=== PATIENT | female | born 1970 | race Caucasian/White ===

== ENCOUNTER 2019-10-06 10:16 | Day surgery (SDC) | payer OTHER, BC ==
[2019-10-03 09:08] VITALS: BMI 36.8
[2019-10-06] MEDS ORDERED: LIDOCAINE HCL/PF 2% SDV 5ML VIAL ONE (10:22)
[2019-10-06] MEDS ORDERED: KETOROLAC TROMETHAMINE 30 MG/1 ML VIAL ONE (10:22)
[2019-10-06] MEDS ORDERED: DEXAMETHASONE SOD PHOSPHATE 4 MG/1 ML VIAL ONE (10:22)
[2019-10-06] MEDS ORDERED: PROPOFOL 20 ML ONE (10:22)
[2019-10-06] MEDS ORDERED: MIDAZOLAM HCL 2 MG/2 ML SINGLE DOSE VIAL ONE ×2 (10:22)
[2019-10-06] MEDS ORDERED: ONDANSETRON 4 MG/2 ML VIAL ONE (10:22)
[2019-10-06] MEDS ORDERED: ONDANSETRON 4 MG/2 ML VIAL IVPUSH PRN (10:41)
[2019-10-06] MEDS ORDERED: oxyCODONE HCL 5 MG TABLET PO PRN ×2 (10:41)
[2019-10-06] MEDS ORDERED: LACTATED RINGERS SOLUTION 1,000 ML IV SCH (10:45)
[2019-10-06] MEDS ORDERED: BUPIVACAINE HCL/PF 0.5% (5MG/ML) 10 ML VIAL ONE (11:00)
[2019-10-06] MEDS ORDERED: MORPHINE 5 MG/10 ML AMP - FOR COMPOUNDING USE ONLY ONE (11:09)
[2019-10-06] MEDS ORDERED: MORPHINE SULFATE 10 MG/1 ML *VIAL ONE (11:13)
[2019-10-06] MEDS ORDERED: ceFAZolin SODIUM 1 GM VIAL ONE (11:34)
[2019-10-06] MEDS ORDERED: BUPIVACAINE HCL/PF 0.5% (5 MG/ML) 30 ML VIAL IJ ONE (11:47)
[2019-10-06] MEDS ORDERED: morphine CARPU-JECT 10 MG/1 ML DISP.SYRIN NR ONE (12:04)
[2019-10-06 15:16] VITALS: TEMP 98.2
[2019-10-06 15:19] VITALS: PULSE 80
[2019-10-06 15:22] VITALS: BP 112/74
--- NOTE | 2019-10-06 20:33 | OP ---
DATE OF OPERATION: 10/06/2019 PREOPERATIVE DIAGNOSIS: 1. Stiffness, left long finger. 2. Torn medial meniscus to the right knee. 3. Stiffness to the right knee. POSTOPERATIVE DIAGNOSIS: 1. Stiffness, left long finger. 2. Torn medial meniscus to the right knee. 3. Stiffness to the right knee. 4. Anterior cruciate ligament tear to the right knee. 5. 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 6. Fissuring of the right knee patellar inferior articular surface. 7. Extensive joint debris for the right knee. 8. 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 PROCEDURE PERFORMED: 1. Gentle slow manipulation left hand long finger. 2. Medial meniscectomy to the right knee. 3. Gentle manipulation under anesthesia to the right knee with lysis and resection of adhesions. 4. Anterior cruciate ligament tightening using micro wand technique to the right knee, partial thickness tear of the anterior cruciate ligament. 5. Microdrilling technique for stem cell recruitment for osteochondritis dissecans lesion of 1 cm in diameter to the right knee. 6. Chondroplasty and chondral shaving to the right knee inferior patellar articular surface. 7. Extensive joint debridement to the right knee. 8. Extensive hypertrophic synovectomy to the right knee. 9. Plastic surgical closure to the right knee. SURGEON: Barbara Rhodes MD. INTERNET SALES ASSOCIATE: SHAYNE Arreguin. TYPE OF ANESTHESIA: General anesthesia. ANESTHESIOLOGIST: Alesia Feng MD. DESCRIPTION OF PROCEDURE: The patient was brought to the operating room and gently transferred from the stretcher to the operating room table with all bony prominences well padded. The right leg was prepared and draped in the sterile fashion. The patient was given intravenous antibiotics and copious irrigation throughout the procedure to minimize the risk of infection. Complete risks, benefits, and alternatives discussion was conducted with the patient, which is inclusive of but not limited to infection, bleeding, , paralysis, increased pain, and need for repeat surgery. Patient asked questions, understood the procedure, and desired to proceed with surgical treatment. An appropriate timeout had been conducted, identifying the type of surgery, surgeon, patient, and anesthesiologist. Following the general anesthesia and preparation draping of the patient, the left hand was noted to be significant stiffness to the left hand long finger. Initial metacarpophalangeal joint flexion was only noted to be 20 degrees. PIP joint flexion was noted to be 10 degrees. DIP joint flexion was 5 degrees. Following a gentle slow manipulation, the DIP joint flexion was noted to be 45 degrees, proximal interphalangeal joint flexion was noted to be 100 degrees. Metacarpophalangeal joint flexion was noted to be 90 degrees. Full range of movement was identified with full extension following the gentle slow manipulation. Right knee was also examined. Anterior drawer was positive. Range of movement was 5 degree block to extension with 80 degrees flexion. Following the gentle slow manipulation of the right knee, full extension was obtained, anterior drawer continued to be positive, and flexion was to 105 degrees. Following this an examination of the leg was performed. Sterile preparation and draping had been performed. The tourniquet was raised to 350 mmHg. Suprapatellar medial and lateral joint line portals were used to introduce the arthroscope and arthroscopic instruments. The knee was examined. There was noted to be extensive hypertrophic synovium in the suprapatellar pouch and extensive synovectomy was performed. There were no deviations to the joint. These were lysed and resected. Medial and lateral gutters were without plica. Medial meniscus was found to have a tear in the posterior joint, and this was resected using shaver and radiofrequency wand; intracondylar region was noted to have extensive joint debris, and extensive joint debridement was performed. There was noted to be a 1-cm diameter osteochondritis dissecans lesion on the medial femoral condyle. This was debrided and a drill of 0.62 mm in diameter was used to create a drill pattern with multiple perforations to allow stem cells to be recruited. Anterior cruciate ligament was examined. There was noted to be fraying and tearing of the cruciate ligament; this was debrided, and micro wand technique was used to tighten the wand. Prior to initiation of the tightening and stabilization procedure, anterior drawer was positive. Following the stabilization, anterior drawer became negative with no gross laxity seen on the anterior cruciate ligament. Lateral meniscus was found to have a tear on the posterior horn, and this was resected using shaver and radiofrequency wand. The knee was then copiously irrigated with sterile saline irrigant. The wounds were closed with 4-0 undyed Vicryl in a plastic surgical fashion. It should be noted that SHAYNE Arreguin, was assistant sales director, and his presence and assistance during surgery provided safety while I used the drill and radiofrequency wand and microshavers. Stalin Martino held the arthroscope and assisted with the surgery. Following this, the patient was given a dressing of Steri-Strips, Xeroform, 4x4s ABD sterile Webril and Adeel bandage, and the knee immobiler. The patient was then gently awoken from anesthesia without incident and transferred from operating room to the recovery room in satisfactory condition. Tourniquet had been deflated after approximately 30 minutes of tourniquet time. There were no intraoperative complications. BARBARA RHODES M.D. [id number]
--- NOTE | 2019-10-08 16:56 | PATH ---
Surgical Pathology Report Patient Name: JACK ZIMMERMAN [facility]. Rec. #: [id number] /Age/Gender: 1970 (Age: 49) / F Account: [id number] Location: [facility] AMBULATORY Taken: 10/06/2019 Received: 10/06/2019 Reported: 10/08/2019 Physicians: Alex Hernandez M.D. Specimen(s) Received RIGHT KNEE SHAVINGS Clinical History Internal derangement of the right knee Final Diagnosis KNEE, RIGHT, ARTHROSCOPIC SHAVINGS: FIBROCOLLAGENOUS AND FIBROSYNOVIAL TISSUE. Electronically Signed Rehana Gill M.D. Gross Description Received in formalin labeled "right knee shavings," is a 1.0 x 0.5 x 0.2 cm aggregate of de souza-yellow soft tissue fragments. The formalin is filtered and the specimen is entirely submitted in one cassette. /10/07/2019 [facility]10/07/2019
== END 2019-10-06 14:35 | disposition home or self-care (01) ==
LOC: FASU 10:16
PROVIDERS: ATTEND Orthopaedic Surgery
PROC: 0SQC4ZZ Repair Right Knee Joint, Percutaneous Endoscopic Approach (ICD-10-PCS; 2019-10-06)
PROC: 0SBC4ZZ Excision of Right Knee Joint, Percutaneous Endoscopic Approach (ICD-10-PCS; 2019-10-06)
PROC: 0SBC4ZZ Excision of Right Knee Joint, Percutaneous Endoscopic Approach (ICD-10-PCS; 2019-10-06)
PROC: 0RN Upper Joints, Release (ICD-10-PCS; 2019-10-06)
PROC: 0SBC4ZZ Excision of Right Knee Joint, Percutaneous Endoscopic Approach (ICD-10-PCS; principal; 2019-10-06 11:47)
PROC: 0MSN4ZZ Reposition Right Knee Bursa and Ligament, Percutaneous Endoscopic Approach (ICD-10-PCS; 2019-10-06 11:47)
DX: S83.241A Other tear of medial meniscus, current injury, right knee, initial encounter (principal); M25.642 Stiffness of left hand, not elsewhere classified; M25.661 Stiffness of right knee, not elsewhere classified; S83.511A Sprain of anterior cruciate ligament of right knee, initial encounter; X58.XXXA Exposure to other specified factors, initial encounter; Y93.9 Activity, unspecified; Y92.9 Unspecified place or not applicable; M93.261 Osteochondritis dissecans, right knee; M24.10 Other articular cartilage disorders, unspecified site; M67.261 Synovial hypertrophy, not elsewhere classified, right lower leg; M25.861 Other specified joint disorders, right knee
CPT/HCPCS: 26340; 29876; 29881; 29886; 29888; C1713; G0289; 84703; 88304-TC; 94760